=== PATIENT | female | born 1965 | race Caucasian/White ===

== ENCOUNTER 2017-07-02 20:15 | Emergency (ER) | payer OTHER ==
[2017-07-02] MEDS: ACETAMINOPHEN 500 MG TAB PO (22:14)
[2017-07-03] MEDS: DIPHTH/TET/ACEL PERTUSS (ADULT) 0.5 ML VIAL IM* (00:43)
== END 2017-07-03 00:49 | disposition home or self-care (01) ==
LOC: FTE 07-03 00:49
DX: S01.91XA Laceration without foreign body of unspecified part of head, initial encounter (principal); S59.902A Unspecified injury of left elbow, initial encounter; R11.0 Nausea; F17.210 Nicotine dependence, cigarettes, uncomplicated; R51 Headache; V18.4XXA Pedal cycle driver injured in noncollision transport accident in traffic accident, initial encounter; Z79.82 Long term (current) use of aspirin; Z23 Encounter for immunization
CPT/HCPCS: 70450; 70486; 73080-LT; 90471; 90715; 99285-25

== ENCOUNTER 2017-11-16 12:41 | Emergency (ER) | payer OTHER ==
[2017-11-16 15:05] LABS: URINE BLOOD (Dip) POC Trace-intact (NEGATIVE); URINE GLUCOSE (Dip) POC Negative (NEGATIVE); URINE KETONES (Dip) POC Negative (NEGATIVE); URINE LEUKOCYTE EST (Dip) POC 1+ (NEGATIVE); URINE NITRITE (Dip) POC Negative (NEGATIVE); URINE TOTAL PROTEIN POC Negative (NEGATIVE)
[2017-11-16 15:05] LABS: URINE PH (Dip) POC 5.5 (5.0-8.5)
== END 2017-11-16 16:10 | disposition home or self-care (01) ==
LOC: FTE 12:41
DX: S30.0XXA Contusion of lower back and pelvis, initial encounter (principal); N39.0 Urinary tract infection, site not specified; F17.210 Nicotine dependence, cigarettes, uncomplicated; X58.XXXA Exposure to other specified factors, initial encounter; Y92.9 Unspecified place or not applicable
CPT/HCPCS: 81003; 81025; 99283

== ENCOUNTER 2018-01-08 08:19 | Emergency (ER) | payer OTHER ==
[2018-01-08] MEDS: KETOROLAC 30 MG INJ IM (08:53)
[2018-01-08 08:58] LABS: ADD UMIC NO; UR ASCORBIC ACID NEGATIVE (NEGATIVE); UR BILIRUBIN (Dip) NEGATIVE (NEGATIVE); UR BLOOD (Dip) NEGATIVE (NEGATIVE); UR CLARITY CLEAR (CLEAR); UR COLOR STRAW (YELLOW); UR GLUCOSE (Dip) NEGATIVE (NEGATIVE); UR KETONES (Dip) NEGATIVE (NEGATIVE); UR LEUKOCYTE ESTERASE (Dip) NEGATIVE Leu/ul (NEGATIVE); UR NITRITE (Dip) NEGATIVE (NEGATIVE); UR SPECIFIC GRAVITY (Dip) 1.012 (1.003-1.030); UR TOTAL PROTEIN (Dip) NEGATIVE (NEGATIVE); UR UROBILINOGEN (Dip) NEGATIVE (NEGATIVE)
== END 2018-01-08 09:27 | disposition home or self-care (01) ==
LOC: E/R 08:19
DX: M54.5 Low back pain (principal); F17.210 Nicotine dependence, cigarettes, uncomplicated; F15.10 Other stimulant abuse, uncomplicated; Z79.82 Long term (current) use of aspirin
CPT/HCPCS: 81003; 96372; 99284-25